=== PATIENT | male | born 1960 | race Caucasian/White ===

== ENCOUNTER → 2017-02-16 | Day surgery (SDC) | payer OTHER ==
[~2017-02-16] MED LIST: COATED ASPIRIN325 M1 PO; LOSARTAN POTASS50 MG PO; METFORMIN HCL500 M1 PO; TRIAMTERENE-HCT1 TA8 PO; ZOCOR10 MG PO
--- NOTE | ~2017-02-16 | OR ---
Unit #: [id number] #: [id number] Patient: RINA LUCAS [id number] [address] [place], [place] [address] [id number] O MR#: [id number] NAME: RINA LUCAS ROOM: Date of Procedure: 02/16/2017 Admission Date: 02/16/2017 Surgeon: Jeb Bourne Jr., M.D. : 1960 Attending Physician: Jeb Bourne Jr., M.D. Primary Care Physician: Elvira Marks M.D. OPERATIVE REPORT INDICATIONS FOR PROCEDURE The patient is a 56-year-old white male, who recently presented to the office complaining of an enlarging mass of the right posterior neck. It has been there for well over a year. He is brought in this time for excision of this. He understands the procedure including the risks, including that of infection, poor healing, nerve injury, spinal accessory nerve with muscle weakness, and consents. PREOPERATIVE DIAGNOSIS Enlarging mass of the right posterior neck. POSTOPERATIVE DIAGNOSIS Lipomatous mass, possible lymph node. This was 4 cm in diameter. ANESTHESIA 1% Xylocaine with epinephrine locally. PROCEDURE PERFORMED Excision of nodular mass of the right posterior neck. DESCRIPTION OF PROCEDURE The patient was positioned in left lateral decubitus position. After being prepped and draped in routine fashion, he was anesthetized locally in the area of the mass with 1% Xylocaine with epinephrine. A transverse incision approximately a 1-1/2 to 2-inch in length that was made with the elliptical portion of skin being taken along with this mass. An incision was made with a #15 blade and taken down through the subcutaneous tissue, deeper subcutaneous tissue, and the fascia of the muscle. The mass was completely removed from the trapezius muscle and the area was checked for spinal accessory nerve and it was never seen and there was never neurologic change. After the mass was removed, it was sent to pathology. Hemostasis was achieved with Bovie cautery. Deeper tissue approximated with interrupted 3-0 Vicryl sutures. Skin edges approximated with stainless-steel skin clips and skin stapling device. Sterile dressings were applied externally. Estimated blood loss less than 10 mL. The patient received no fluids during the procedure. Sponges and instrument counts were correct x3. No drains used. No complications. The patient was discharged in satisfactory condition. Dictated by... Unit #: [id number] #: [id number] Patient: RINA LUCAS Jr., M.D. JMB/xavier TD: 02/16/2017 23:08 JOB #: [id number] OPERATIVE REPORT Page 1 of 1 X Jeb Bourne MD X PROCEDURE OPERATIVE NOTE
== END | disposition home or self-care (01) ==
LOC: CSUR 05:41
DX: D17.0 Benign lipomatous neoplasm of skin and subcutaneous tissue of head, face and neck (principal); I71.4 Abdominal aortic aneurysm, without rupture; I10 Essential (primary) hypertension; H81.10 Benign paroxysmal vertigo, unspecified ear; E11.9 Type 2 diabetes mellitus without complications; E78.5 Hyperlipidemia, unspecified; Z88.8 Allergy status to other drugs, medicaments and biological substances; Z87.442 Personal history of urinary calculi; Z79.82 Long term (current) use of aspirin; Z79.899 Other long term (current) drug therapy; Z87.891 Personal history of nicotine dependence
CPT/HCPCS: 82947; 88305